=== PATIENT | male | born 1945 | race Two or more races ===

== ENCOUNTER 2016-03-15 15:45 | Outpatient (CLI) ==
[2015-08-04 15:45] VITALS: BMI 40.6
[2016-03-15 16:03] LABS: BASOPHILS # (AUTO) 0.1 K/uL (0-0.2); BASOPHILS % (AUTO) 0.8 % (0.0-3.0); EOSINOPHILS # (AUTO) 0.4 K/ul (0.0-0.7); EOSINOPHILS % (AUTO) 3.1 % (0.0-7.0); HEMATOCRIT 46.5 % (42.0-52.0); HEMOGLOBIN 15.8 g/dl (14.0-18.0); IMMATURE GRANULOCYTE % (AUTO) 0.6 % (0.0-5.0); LYMPHOCYTES # (AUTO) 2.8 K/uL (0.60-3.4); LYMPHOCYTES % (AUTO) 22.3 (10.0-50.0); MEAN CORPUSCULAR HEMOGLOBIN 30.6 pg (27.0-31.0); MEAN CORPUSCULAR VOLUME 89.9 fl (80.0-94.0); MONOCYTES # (AUTO) 1.6 K/uL (0.4-2.0); MONOCYTES % (AUTO) 12.9 (0-10); NEUTROPHILS # (AUTO) 7.7 K/ul (2.0-6.9); NEUTROPHILS % (AUTO) 60.3; PLATELET COUNT 290 10^3/uL (140-440); RED BLOOD COUNT 5.17 10^6/ul (4.70-6.10); WHITE BLOOD COUNT 12.71 K/ul (4.2-10.2)
[2016-03-15 16:19] LABS: ALBUMIN 3.8 g/dL (3.4-5.0); ALBUMIN/GLOBULIN RATIO 1.06; ANION GAP 14.4; BILIRUBIN,TOTAL 0.31 mg/dL (0.00-1.20); BUN/CREATININE RATIO 17.43; CALCIUM 9.8 mg/dL (8.2-10.2); CHOL/HDL RATIO 5.6 (4.5-6.4); CREATININE 1.09 mg/dL (0.60-1.10); POTASSIUM 4.4 mmol/L (3.5-5.1); TOTAL PROTEIN 7.4 g/dL (5.8-8.1)
== END 2016-03-15 15:46 | disposition home or self-care (01) ==
LOC: LAB 15:45
PROVIDERS: ATTEND Emergency Medicine
DX: I10 Essential (primary) hypertension (principal); E66.9 Obesity, unspecified
CPT/HCPCS: 36415; 80053; 80061; 84443; 85025

== ENCOUNTER 2016-07-20 14:31 | Outpatient (CLI) | payer OTHER ==
[2015-08-04 15:45] VITALS: BMI 40.6
[2016-07-20 14:47] LABS: BASOPHILS # (AUTO) 0.1 K/uL (0-0.2); BASOPHILS % (AUTO) 0.8 % (0.0-3.0); EOSINOPHILS # (AUTO) 0.3 K/ul (0.0-0.7); EOSINOPHILS % (AUTO) 2.7 % (0.0-7.0); HEMATOCRIT 43.1 % (42.0-52.0); IMMATURE GRANULOCYTE % (AUTO) 0.6 % (0.0-5.0); LYMPHOCYTES # (AUTO) 2.7 K/uL (0.60-3.4); LYMPHOCYTES % (AUTO) 22.7 (10.0-50.0); MEAN CORPUSCULAR HGB CONC 34.8 (31.8-35.4); MONOCYTES # (AUTO) 1.4 K/uL (0.4-2.0); MONOCYTES % (AUTO) 11.6 (0-10); NEUTROPHILS # (AUTO) 7.4 K/ul (2.0-6.9); NEUTROPHILS % (AUTO) 61.6; PLATELET COUNT 305 10^3/uL (140-440); RED BLOOD COUNT 4.84 10^6/ul (4.70-6.10); WHITE BLOOD COUNT 11.96 K/ul (4.2-10.2)
[2016-07-20 15:33] LABS: ALBUMIN 3.9 g/dL (3.4-5.0); ALBUMIN/GLOBULIN RATIO 1.11; ANION GAP 13.5; BILIRUBIN,TOTAL 0.56 mg/dL (0.00-1.20); BUN/CREATININE RATIO 15.74; CALCIUM 9.8 mg/dL (8.2-10.2); CHOL/HDL RATIO 5.4 (4.5-6.4); CREATININE 1.08 mg/dL (0.60-1.10); POTASSIUM 4.5 mmol/L (3.5-5.1); TOTAL PROTEIN 7.4 g/dL (5.8-8.1)
== END 2016-07-20 14:32 | disposition home or self-care (01) ==
LOC: LAB 14:31
PROVIDERS: ATTEND Emergency Medicine
DX: I10 Essential (primary) hypertension (principal); E66.9 Obesity, unspecified
CPT/HCPCS: 36415; 80053; 80061; 84443; 85025

== ENCOUNTER 2016-10-19 07:51 | Outpatient (CLI) ==
[2015-08-04 15:45] VITALS: BMI 40.6
[2016-10-19 08:12] LABS: BASOPHILS # (AUTO) 0.1 K/uL (0-0.2); EOSINOPHILS # (AUTO) 0.5 K/ul (0.0-0.7); EOSINOPHILS % (AUTO) 5.1 % (0.0-7.0); HEMATOCRIT 44.4 % (42.0-52.0); HEMOGLOBIN 15.3 g/dl (14.0-18.0); IMMATURE GRANULOCYTE % (AUTO) 0.9 % (0.0-5.0); LYMPHOCYTES # (AUTO) 2.5 K/uL (0.60-3.4); LYMPHOCYTES % (AUTO) 25.9 (10.0-50.0); MEAN CORPUSCULAR HEMOGLOBIN 30.7 pg (27.0-31.0); MEAN CORPUSCULAR HGB CONC 34.5 (31.8-35.4); MEAN CORPUSCULAR VOLUME 89.2 fl (80.0-94.0); MONOCYTES # (AUTO) 0.9 K/uL (0.4-2.0); MONOCYTES % (AUTO) 9.2 (0-10); NEUTROPHILS # (AUTO) 5.6 K/ul (2.0-6.9); NEUTROPHILS % (AUTO) 57.9; PLATELET COUNT 333 10^3/uL (140-440); RED BLOOD COUNT 4.98 10^6/ul (4.70-6.10); WHITE BLOOD COUNT 9.73 K/ul (4.2-10.2)
[2016-10-19 08:44] LABS: ALBUMIN 3.8 g/dL (3.4-5.0); ALBUMIN/GLOBULIN RATIO 1.06; ANION GAP 15.2; BILIRUBIN,TOTAL 0.62 mg/dL (0.00-1.20); BUN/CREATININE RATIO 18.55; CALCIUM 9.7 mg/dL (8.2-10.2); CHOL/HDL RATIO 3.9 (4.5-6.4); CREATININE 0.97 mg/dL (0.60-1.10); POTASSIUM 4.2 mmol/L (3.5-5.1); TOTAL PROTEIN 7.4 g/dL (5.8-8.1)
[2016-10-20 06:11] LABS: THYROXINE (T4) 8.5 ug/dL (4.5-12.0); TSH 2.69 uIU/mL (0.450-4.500)
== END 2016-10-19 07:52 | disposition home or self-care (01) ==
LOC: LAB 07:51
PROVIDERS: ATTEND Emergency Medicine
DX: I10 Essential (primary) hypertension (principal); E66.9 Obesity, unspecified; E78.5 Hyperlipidemia, unspecified
CPT/HCPCS: 36415; 80053; 80061; 84436; 84443; 84479; 85025

== ENCOUNTER 2024-12-03 09:39 | Inpatient (IN) ==
[2024-12-03] MEDS: ALBUTEROL 0.083% NEB NEB STA (10:04)
[2024-12-03 10:09] LABS: IMMATURE GRANULOCYTE # (AUTO) 0.1 (0.0-1.0); IMMATURE GRANULOCYTE % (AUTO) 0.5 % (0.0-5.0); RDW COEFFICIENT OF VARIATION 14.4 % (11.6-14.8)
[2024-12-03 10:23] LABS: CREATININE 1.45 mg/dL (0.60-1.10)
--- NOTE | 2024-12-03 10:27 | DI ---
EXAM: CHEST RADIOGRAPH TECHNIQUE: Single frontal chest radiograph. HISTORY: Shortness of breath. COMPARISON: 08/04/2015 FINDINGS: The patient is mildly rotated to the left. The patient's chin partially obscures the left apex. Hypoventilation. EKG leads project over the chest. No pulmonary infiltrate is identified. Equivocal trace bilateral pleural effusions. No visible pneumothorax. Stable cardiomegaly, with interval development of increased peribronchovascular markings bilaterally. No acute displaced rib fractures are identified. IMPRESSION: 1. Stable cardiomegaly with equivocal trace bilateral pleural effusions, and suggestions of either interstitial edema or bronchitis.
--- NOTE | 2024-12-03 11:21 | US ---
EXAM: BILATERAL LOWER EXTREMITY DEEP VENOUS ULTRASOUND WITH DOPPLER IMAGING HISTORY: Lower extremity edema. TECHNIQUE: Bryant-scale ultrasound with compression maneuvers and color and spectral Doppler ultrasound at rest and with augmentation of the veins was performed. Images were obtained and stored in a permanent archive. COMPARISON: Right lower extremity venous Doppler ultrasound 08/10/2015 FINDINGS: RIGHT LOWER EXTREMITY: Common Femoral Vein: Normal compression. Normal flow on color Doppler images. Normal response to augmentation. Deep Femoral Vein: Normal compression. Normal flow on color Doppler images. Normal response to augmentation. Femoral Vein: Normal compression. Normal flow on color Doppler images. Normal response to augmentation. Popliteal Vein: Normal compression. Normal flow on color Doppler images. Normal response to augmentation. Peroneal Vein: Normal compression. Normal flow on color Doppler images. Posterior Tibial Vein: Normal compression. Normal flow on color Doppler images. Anterior Tibial Vein: Normal compression. Normal flow on color Doppler images. Great Saphenous Vein (Superficial): Normal compression. Normal flow on color Doppler images. Other: No reflux. LEFT LOWER EXTREMITY: Common Femoral Vein: Normal compression. Normal flow on color Doppler images. Normal response to augmentation. Deep Femoral Vein: Normal compression. Normal flow on color Doppler images. Normal response to augmentation. Femoral Vein: Normal compression. Normal flow on color Doppler images. Normal response to augmentation. Popliteal Vein: Normal compression. Normal flow on color Doppler images. Normal response to augmentation. Peroneal Vein: Suboptimal visualization due to body habitus and subcutaneous edema. Posterior Tibial Vein: Normal compression. Normal flow on color Doppler images. Anterior Tibial Vein: Normal compression. Normal flow on color Doppler images. Great Saphenous Vein (Superficial): Normal compression. Normal flow on color Doppler images. Other: No reflux. Subcutaneous edema. IMPRESSION: 1. No deep venous thrombosis (DVT) in the visualized right or left lower extremity. Suboptimal evaluation of left peroneal vein. 2. No superficial venous thrombosis (SVT) in the right or left lower extremity. 3. Subcutaneous edema. *Note: Anticoagulation for SVT can be considered only if greater than or equal to 5 cm in length. (https://journal.chestnet.org/[email or web address]/[email or web address])
[2024-12-03] MEDS: ZOSYN 2.25 GM 2.25 GM in SODIUM CHLORIDE 100ML 100 ML IV ONE (11:27)
[2024-12-03] MEDS: LASIX IVP STA (11:27)
[2024-12-03] MEDS: VISIPAQUE 320 MG/ML 100ML IVP ONE (11:49)
[2024-12-03 11:52] LABS: MOLECULAR FLU A NEGATIVE BY NAAT (NEGATIVE); MOLECULAR FLU B NEGATIVE BY NAAT (NEGATIVE)
[2024-12-03 11:58] LABS: SARS COV-2 RNA RAPID NAAT NEGATIVE (NEGATIVE)
--- NOTE | 2024-12-03 12:00 | ED.PDOC ---
General HPI ED Provider: Dr. TITI ALONSO MD Chief Complaint: Shortness of Air Stated Complaint: 79 years old male comes emergency room for shortness of breath. Patient has not seen a doctor since 2016. He is complaining of shortness of breath that have gotten progressively worse along with edema of the lower extremities patient also reports that he is feeling overall weak. He denies any chest pain, nausea, vomiting, changes in bowel or urine. Time Seen by Provider: 12/03/24 09:52 Information Source: Patient Nursing and Triage Documentation Reviewed and Agree: Yes Opioid Naive vs. Tolerant What is Opioid Naive?: *Opioid Naive implies the patient is not already taking opioids or not chronically receiving opioids on a daily basis. *PRN dosing is not "usually" associated with tolerance. *Patients are at higher risk of over-sedation and aspiration. What is Opioid Tolerant?: *Opioid Tolerance implies less than the expected response to an opioid. *Acquired tolerance is defined by the patient taking 60mg of oral morphine daily (or equianalgesic dose of another opioid) for 1 week or more. *Often associated with chronic pain. *May take more than usual dose to achieve desired pain control. Review of Systems Review Of Systems Constitutional: Reports No symptoms All Other Systems: Reviewed and Negative [facility] Medical History (Updated 12/03/24 @ 12:36 by TITI ALONSO MD) Hypertension I10 - Essential (primary) hypertension (ICD-10) History of blood clot in brain (~1992) Z86.718 - Personal history of other venous thrombosis and embolism (ICD-10) Social History History of recent travel: No Surgical History (Updated 09/29/19 @ 08:51 by [employer]) Status post tonsillectomy Z90.89 - Acquired absence of other organs (ICD-10) Physical Exam Physical Exam Appearance: Reports Obese Neck: Supple Respiratory: Reports Breath sounds diminished and Crackles (Mild bibasilar) Cardiovascular: Reports RRR and Pulses normal GI/: Reports Soft, Nontender and No masses Musculoskeletal: Reports Edema ( plus bilateral lower extremities with skin erythema) Skin: Reports Warm and Other (Erythema of the bilateral lower extremities more on the right side) Neurological: Reports Sensation intact and Motor intact Psychiatric: Reports Affect appropriate Interpretation EKG Interpretation EKG Interpretation By: ED Physician Time of EKG #1: 09:52 Rate: Normal Rhythm: Sinus Ectopy: None [place]: NL Interpretation: no sings of acute ischemia Course Course 12/03/24 09:57 12/03/24 09:57 Orders, Labs, Meds: Lab Review 12/03/24 12/03/24 12/03/24 09:56 09:57 11:40 WBC 20.09 H RBC 5.44 Hgb 16.7 Hct 52.0 MCV 95.6 H MCH 30.7 MCHC 32.1 RDW Coeff of Brigid 14.4 Plt Count 283 Immature Gran % (Auto) 0.5 Neut % (Auto) 90.3 H Lymph % (Auto) 3.9 L Wheeler % (Auto) 5.0 Eos % (Auto) 0.0 Baso % (Auto) 0.3 Neut # (Auto) 18.1 H Lymph # (Auto) 0.8 Wheeler # (Auto) 1.0 Eos # (Auto) 0.0 Baso # (Auto) 0.1 Immature Gran # (Auto) 0.1 Sodium 138.7 Potassium 4.65 Chloride 105.6 Carbon Dioxide 24.7 Anion Gap 13.05 BUN 24.7 H Creatinine 1.45 H Estimated GFR (MDRD) 47.00 BUN/Creatinine Ratio 17.03 Glucose 109.0 H Lactic Acid 5.39 H Calcium 9.56 Total Bilirubin 1.97 H AST 39.0 ALT 30.8 Alkaline Phosphatase 296.8 H Troponin I 0.060 NT-Pro-B Natriuret Pep 34387 H Total Protein 7.50 Albumin 3.77 Globulin 3.73 Albumin/Globulin Ratio 1.01 D-Dimer 1451.98 H Influ A Molecular Assay Negative by naat Influ B Molecular Assay Negative by naat SARS CoV-2 RNA Rapid MARGUERITE Negative Orders Category Date Time Status ADMIT PATIENT INPATIENT .TO [facility] (MONITORED BED) ADMISSION 12/03/24 12:32 Completed ECHO COLOR FLOW W/WO CONTRAST Routine CARDIO 12/03/24 12:35 Ordered NEBULIZER TREATMENT Stat CARDIO 12/03/24 09:59 Completed NPO REMINDER: IMAGING ONCE CARE 12/03/24 11:35 Active TELEMETRY MONITORING TELE CARE 12/03/24 12:32 Active IV [ED IV/MEDIPORT/POWERPORT] .ONCE EMERGENCY 12/03/24 10:00 Active Monitor [ED PIPE BLANKS CUT OFF SAW OPERATOR APPLIED] .ONCE EMERGENCY 12/03/24 10:00 Active BLOOD CULTURE (ED ONLY) Stat LAB 12/03/24 10:34 Received CBC W/ AUTO DIFF Stat LAB 12/03/24 09:57 Completed CMP [COMPREHENSIVE METABOLIC PANEL] Stat LAB 12/03/24 09:57 Completed COVID [SARS COV-2 RNA RAPID MARGUERITE] Stat LAB 12/03/24 11:40 Completed D-DIMER Stat LAB 12/03/24 09:57 Completed FLU A & B MOLECULAR [FLU A/B MOLECULAR] Stat LAB 12/03/24 11:40 Completed LACTIC ACID Stat LAB 12/03/24 09:56 Completed NT-PROBNP(ED) Stat LAB 12/03/24 09:57 Completed TROPONIN I Stat LAB 12/03/24 09:57 Completed 0.9 % Sodium Chloride [Saline Flush] Meds 12/03/24 10:00 Active 1 syr IVF PRN PRN Albuterol Sulfate 0.083% Neb [Albuterol 0.083% Neb] Meds 12/03/24 09:57 Discontinued 2.5 mg NEB ONCE STA Furosemide [Lasix] Meds 12/03/24 10:35 Discontinued 20 mg IVP ONCE STA Iodixanol [Visipaque 320 mg/ml 100Ml] Meds 12/03/24 11:37 Discontinued 100 ml IVP ONCE ONE Piperacillin Sodium/Tazobactam [Zosyn 2.25 gm] 2.25 gm Meds 12/03/24 10:34 Discontinued 0.9 % Sodium Chloride [Sodium Chloride 100Ml] 100 ml IV ONCE CTA CHEST PE PROTOCOL Stat RADS 12/03/24 11:35 Completed CXR [CHEST, 1V AP ONLY] Stat RADS 12/03/24 09:57 Completed ULTRASOUND VENOUS SCAN KORTNEY LEGS [U/S VENOUS SCAN KORTNEY RADS 12/03/24 09:57 Completed LEGS] Stat Medications Generic Name Dose Route Start Last Admin Trade Name Freq PRN Reason Stop Dose Admin Acetaminophen 650 mg 12/03/24 13:36 Acetaminophen 325 Mg Tablet PO Q4H PRN Mild Pain Furosemide 40 mg 12/03/24 21:00 Furosemide Inj 40 Mg/4 Ml Vial IVP Q8HR WARREN Cefazolin Sodium/Dextrose 2 gm in 50 mls @ 75 mls/hr 12/03/24 14:30 Ancef 2 Gm/50 Ml Premix IV 12/06/24 14:29 Q8HR WARREN Ondansetron HCl 4 mg 12/03/24 13:36 Ondansetron Hcl/Pf 4 Mg/2 Ml Sdv IVP Q6H PRN Nausea / Vomiting Sodium Chloride 1 syr 12/03/24 10:00 0.9% Sodium Chloride 10 Ml Disp.Syrin IVF PRN PRN To flush IV Discontinued Medications Generic Name Dose Route Start Last Admin Trade Name Freq PRN Reason Stop Dose Admin Albuterol Sulfate 2.5 mg 12/03/24 09:57 12/03/24 10:04 Albuterol Sulfate 0.083% Vial.Neb NEB 12/03/24 09:58 2.5 mg ONCE STA Administration Furosemide 20 mg 12/03/24 10:35 12/03/24 11:27 Furosemide Inj 20 Mg/2 Ml Vial IVP 12/03/24 10:36 20 mg ONCE STA Administration Piperacillin Sod/Tazobactam 100 mls @ 200 mls/hr 12/03/24 10:34 12/03/24 11:27 Sod 2.25 gm/ Sodium Chloride IV 12/03/24 11:03 200 mls/hr ONCE ONE Administration Iodixanol 100 ml 12/03/24 11:37 12/03/24 11:49 Iodixanol 320 Mg/Ml 100ml IVP 12/03/24 11:38 100 ml ONCE ONE Administration Vital Signs: Temp Pulse Resp BP Pulse Ox 12/03/24 09:43 97.7 F 102 H 22 H 118/77 96 Patient with cellulitis bilateral lower extremities CBC showing leukocytosis with left shift lactic acid is 5 patient also have CHF exacerbation proBNP is 36,000 blood cultures were drawn will avoid hydration due to CHF exacerbation patient received 20 mg of Lasix IV along with nebulizer treatment which helped with his saturations prior cellulitis he received a dose of Zosyn. proBNP mildly elevated ultrasound lower extremities negative for DVT as per radiology interpretation chest x-ray showing pulmonary vascular congestion with trace of pleural effusion as per radiology interpretation CTA PE protocol negative for PE as per radiology interpretation as well. Patient will be admitted for further diuresis and will be antibiotics and echo. Case discussed with hospitalist Carol and she accepted the patient to be admitted for further management. Plan of admission discussed with the patient and he agrees with plan of care. Discharge Plan Discharge Patient Disposition: ADMITTED INPATIENT Discharge Problem: Cellulitis of right lower extremity, Acute exacerbation of congestive heart failure Did you review [place] [employer] for ALL controlled substances?: Not Applicable ED Provider: TITI ALONSO Condition: Stable
--- NOTE | 2024-12-03 12:24 | CT ---
EXAM: CHEST CTA WITH CONTRAST (PULMONARY ARTERY) HISTORY: Chest pain and shortness of breath. TECHNIQUE: CTA acquisition of the chest from the thoracic inlet to the upper abdomen following IV contrast administration timed to filling of the pulmonary artery. 3D/MIP/VR images were utilized. CT Dose Reduction Techniques Employed: Yes. COMPARISON: None. FINDINGS: Pulmonary Embolism: - Diagnostic quality: Adequate. - Central (Main/Lobar/Interlobar): No embolus. - Peripheral (Segmental/Subsegmental): No embolus. Lung Parenchyma and Airways: There are moderate bilateral pleural effusions. There is pulmonary vascular congestion. No suspicious pulmonary nodule. No pleural effusion or thickening. No pneumothorax. Thoracic Inlet, Mediastinum, and [place]: No mass. There are calcified mediastinal lymph nodes. Heart, Vessels, and Pericardium: No aortic anuerysm. The heart chambers are enlarged. There is no pericardial effusion or thickening. There are multi vessel coronary vascular calcifications. Bones and Soft Tissues: There is no fracture or lytic lesion. Chest wall soft tissues are unremarkable. Upper Abdomen: There are calcified granulomas in the liver and spleen. IMPRESSION: 1. No evidence of pulmonary artery embolism. 2. Vascular congestion with moderate bilateral pleural effusions. All CT scans are performed using dose optimization techniques as appropriate to the performed exam and include at least one of the following: Automated exposure control, adjustment of the mA and/or kV according to size, and the use of iterative reconstruction technique.
[2024-12-03] MEDS ORDERED: ZOFRAN SDV IVP PRN (13:36)
[2024-12-03] MEDS ORDERED: TYLENOL PO PRN (13:36)
[2024-12-03 13:50] LABS: CHOL/HDL RATIO 3.3 (4.5-6.4); VLDL CHOLESTEROL 24.0 mg/dL (2-30)
--- NOTE | 2024-12-03 14:00 | PCM ---
Date of Service Date Seen by Provider: 12/03/24 Time Seen by Provider: 13:00 Admit Day/Time Admission Date: 12/03/24 Admission Time: 12:35 Reason for Admission Chief Complaint: CELLULITIS, BLE, CHF EXACERBATION Hospital Provider Hospital Provider: NINOSKA DAMON PA-C, [facility] History of Present Illness History of Present Illness: Patient is a 79 year old male with no known PMH due to lack of health care utilization. Patient arrived to the ED today due to shortness of breath and weakness. He has been experiencing this for 4 months but today he walked 100 feet to his garage, and was so short of breath and weak that he sat down and could not get up. He called his friend to come help him and brought him to the ER. Chest xray and CTA was obtained in the ER, which showed bilateral pleural [place]. [place] [address]. D-dimer elevated at 1451.98, Bilat LE dop pler US showed no DVT. Patient has bilateral 2-3+ lower extremity edema with erythema of the right lower extremity extending from the anterior and lateral portion of the lower leg up to the thigh, suspicious for cellulitis. WBC count and lactic acid is elevated. He states he has had a dry cough for the past few months. He denies any chest pain, nausea, headache, dizziness, or complaints. Has hx of cellulitis many years ago. Admitted to med surg. Case Discussed With Case Discussed With: Patient's case was discussed with the ER Physicians, Dr. Lilly. [facility] Medical History Hypertension I10 - Essential (primary) hypertension (ICD-10) History of blood clot in brain (~1992) Z86.718 - Personal history of other venous thrombosis and embolism (ICD-10) Surgical History Status post tonsillectomy Z90.89 - Acquired absence of other organs (ICD-10) Family History FATHER Enlarged heart Social History History of recent travel: No Allergies Allergies Allergy/AdvReac Type Severity Reaction Status Date / Time No Known Allergies Allergy Unverified 12/03/24 09:43 Current Medications Home Medications Acetaminophen (Acetaminophen 325 Mg Tablet) 650 mg PO Q4H PRN PRN Reason: Mild Pain Furosemide (Furosemide Inj 40 Mg/4 Ml Vial) 40 mg IVP Q8HR [facility] Cefazolin Sodium/Dextrose (Ancef 2 Gm/50 Ml Premix) 2 gm in 50 mls @ 75 mls/hr IV Q8HR [facility] Stop: 12/06/24 14:29 Metoprolol Tartrate (Metoprolol Tartrate 25 Mg Tablet) 12.5 mg PO BID [facility] Last Admin: 12/03/24 14:46 Dose: 12.5 mg Non-Formulary Medication (Aspirin) 325 mg PO DAILY [facility] Non-Formulary Medication (Folic Acid) 400 mcg PO DAILY [facility] Non-Formulary Medication (Multivitamin [Daily Multi-Vitamin]) 1 tab PO DAILY [facility] Ondansetron HCl (Ondansetron Hcl/Pf 4 Mg/2 Ml Sdv) 4 mg IVP Q6H PRN PRN Reason: Nausea / Vomiting Sodium Chloride (0.9% Sodium Chloride 10 Ml Disp.Syrin) 1 syr IVF PRN PRN PRN Reason: To flush IV Neuro Tonix 12/03/24 [History] aspirin 325 mg tablet 325 mg PO DAILY 12/03/24 [History Confirmed 12/03/24] folic acid 400 mcg tablet 400 mcg PO DAILY 12/03/24 [History Confirmed 12/03/24] multivitamin (Daily Multi-Vitamin tablet) 1 tab PO DAILY 12/03/24 [History Confirmed 12/03/24] Opioid Naive vs. Tolerant Does Patient Take Opioids?: No Is Patient Opioid Naive?: Yes What is Opioid Naive?: *Opioid Naive implies the patient is not already taking opioids or not chronically receiving opioids on a daily basis. *PRN dosing is not "usually" associated with tolerance. *Patients are at higher risk of over-sedation and aspiration. Is Patient Opioid Tolerant?: No What is Opioid Tolerant?: *Opioid Tolerance implies less than the expected response to an opioid. *Acquired tolerance is defined by the patient taking 60mg of oral morphine daily (or equianalgesic dose of another opioid) for 1 week or more. *Often associated with chronic pain. *May take more than usual dose to achieve desired pain control. Review of Systems Constitutional: Reports Fatigue and Weakness; Denies Fever or Chills Head: Reports Normocephalic and Atraumatic Eyes: Denies Blurred vision Cardiovascular: Denies Chest pain Respiratory: Reports Cough and Shortness of air Gastrointestinal: Denies Nausea, Vomiting, Diarrhea or Abdominal pain Genitourinary: Reports Testicular Swelling; Denies Dysuria or Frequency Neurological: Denies Headache or Dizziness Physical examination Most Recent Vital Signs: Most Recent Vital Signs Temperature 97.7 F 12/03/24 09:43 Temperature Source Infrared 12/03/24 09:43 Pulse Rate 102 H 12/03/24 09:43 Respiratory Rate 22 H 12/03/24 09:43 Blood Pressure 118/77 12/03/24 09:43 O2 Sat by Pulse Oximetry 96 12/03/24 09:43 Height 5 ft 10.5 in 12/03/24 09:43 Weight 133.8 kg 12/03/24 09:43 Telemetry Heart Rate 100 08/10/15 13:00 Appearance: Positive Well-appearing, No Apparent Distress, Alert and Oriented x3 and Obese Skin: Positive [place], Warm and Erythema (right lower extremity anterior and laterally extending up to his thigh. Weeping noted.) HEENT: Positive Normocephalic and Atraumatic Neck: Positive Supple Chest/Lungs: Positive Symmetrical With Equal Breath Sounds and Clear to Auscultation Bilaterally; Negative Rales, Rhonci or Wheezes Heart: Positive RRR and Tachycardia GI/: Positive Soft and Nontender Extremities: Positive Edema (2-3+ bilat LE ) Neurological: Positive Sensation Intact, Motor intact, Cranial Nerves Intact, Alert and Oriented Psychiatric: Positive Oriented x4 Labs This Visit Labs This Visit: Labs This Visit 12/03/24 12/03/24 12/03/24 09:56 09:57 11:40 WBC 20.09 H RBC 5.44 Hgb 16.7 Hct 52.0 MCV 95.6 H MCH 30.7 MCHC 32.1 RDW Coeff of Brigid 14.4 Plt Count 283 Immature Gran % (Auto) 0.5 Neut % (Auto) 90.3 H Lymph % (Auto) 3.9 L [place] % (Auto) 5.0 Eos % (Auto) 0.0 Baso % (Auto) 0.3 Neut # (Auto) 18.1 H Lymph # (Auto) 0.8 [place] # (Auto) 1.0 Eos # (Auto) 0.0 Baso # (Auto) 0.1 Immature Gran # (Auto) 0.1 Sodium 138.7 Potassium 4.65 Chloride 105.6 Carbon Dioxide 24.7 Anion Gap 13.05 BUN 24.7 H Creatinine 1.45 H Estimated GFR (MDRD) 47.00 BUN/Creatinine Ratio 17.03 Glucose 109.0 H Hemoglobin A1c Lactic Acid 5.39 H Calcium 9.56 Total Bilirubin 1.97 H AST 39.0 ALT 30.8 Alkaline Phosphatase 296.8 H Troponin I 0.060 NT-Pro-B Natriuret Pep 47917 H Total Protein 7.50 Albumin 3.77 Globulin 3.73 Albumin/Globulin Ratio 1.01 Triglycerides Cholesterol LDL Cholesterol, Calc VLDL Cholesterol HDL Cholesterol Cholesterol/HDL Ratio D-Dimer 1451.98 H Influ A Molecular Assay Negative by naat Influ B Molecular Assay Negative by naat SARS CoV-2 RNA Rapid MARGUERITE Negative 12/03/24 13:36 WBC RBC Hgb Hct MCV MCH MCHC RDW Coeff of Brigid Plt Count Immature Gran % (Auto) Neut % (Auto) Lymph % (Auto) [place] % (Auto) Eos % (Auto) Baso % (Auto) Neut # (Auto) Lymph # (Auto) [place] # (Auto) Eos # (Auto) Baso # (Auto) Immature Gran # (Auto) Sodium Potassium Chloride Carbon Dioxide Anion Gap BUN Creatinine Estimated GFR (MDRD) BUN/Creatinine Ratio Glucose Hemoglobin A1c 5.62 Lactic Acid Calcium Total Bilirubin AST ALT Alkaline Phosphatase Troponin I NT-Pro-B Natriuret Pep Total Protein Albumin Globulin Albumin/Globulin Ratio Triglycerides 118.8 Cholesterol 149.0 LDL Cholesterol, Calc 80 VLDL Cholesterol 24 HDL Cholesterol 44.9 Cholesterol/HDL Ratio 3.3 L D-Dimer Influ A Molecular Assay Influ B Molecular Assay SARS CoV-2 RNA Rapid MARGUERITE Imaging Imaging: EXAM: CHEST RADIOGRAPH TECHNIQUE: Single frontal chest radiograph. HISTORY: Shortness of breath. COMPARISON: 08/04/2015 FINDINGS: The patient is mildly rotated to the left. The patient's chin partially obscures the left apex. Hypoventilation. EKG leads project over the chest. No pulmonary infiltrate is identified. Equivocal trace bilateral pleural effusions. No visible pneumothorax. Stable cardiomegaly, with interval development of increased peribronchovascular markings bilaterally. No acute displaced rib fractures are identified. IMPRESSION: 1. Stable cardiomegaly with equivocal trace bilateral pleural effusions, and suggestions of either interstitial edema or bronchitis. EXAM: CHEST CTA WITH CONTRAST (PULMONARY ARTERY) HISTORY: Chest pain and shortness of breath. TECHNIQUE: CTA acquisition of the chest from the thoracic inlet to the upper abdomen following IV contrast administration timed to filling of the pulmonary artery. 3D/MIP/VR images were utilized. CT Dose Reduction Techniques Employed: Yes. COMPARISON: None. FINDINGS: Pulmonary Embolism: - Diagnostic quality: Adequate. - Central (Main/Lobar/Interlobar): No embolus. - Peripheral (Segmental/Subsegmental): No embolus. Lung Parenchyma and Airways: There are moderate bilateral pleural effusions. There is pulmonary vascular congestion. No suspicious pulmonary nodule. No pleural effusion or thickening. No pneumothorax. Thoracic Inlet, Mediastinum, and [place]: No mass. There are calcified mediastinal lymph nodes. Heart, Vessels, and Pericardium: No aortic anuerysm. The heart chambers are enlarged. There is no pericardial effusion or thickening. There are multi vessel coronary vascular calcifications. Bones and Soft Tissues: There is no fracture or lytic lesion. Chest wall soft tissues are unremarkable. Upper Abdomen: There are calcified granulomas in the liver and spleen. IMPRESSION: 1. No evidence of pulmonary artery embolism. 2. Vascular congestion with moderate bilateral pleural effusions. All CT scans are performed using dose optimization techniques as appropriate to the performed exam and include at least one of the following: Automated exposure control, adjustment of the mA and/or kV according to size, and the use of iterative reconstruction technique. EXAM: BILATERAL LOWER EXTREMITY DEEP VENOUS ULTRASOUND WITH DOPPLER IMAGING HISTORY: Lower extremity edema. TECHNIQUE: Bryant-scale ultrasound with compression maneuvers and color and spectral Doppler ultrasound at rest and with augmentation of the veins was performed. Images were obtained and stored in a permanent archive. COMPARISON: Right lower extremity venous Doppler ultrasound 08/10/2015 FINDINGS: RIGHT LOWER EXTREMITY: Common Femoral Vein: Normal compression. Normal flow on color Doppler images. Normal response to augmentation. Deep Femoral Vein: Normal compression. Normal flow on color Doppler images. Normal response to augmentation. Femoral Vein: Normal compression. Normal flow on color Doppler images. Normal response to augmentation. Popliteal Vein: Normal compression. Normal flow on color Doppler images. Normal response to augmentation. Peroneal Vein: Normal compression. Normal flow on color Doppler images. Posterior Tibial Vein: Normal compression. Normal flow on color Doppler images. Anterior Tibial Vein: Normal compression. Normal flow on color Doppler images. Great Saphenous Vein (Superficial): Normal compression. Normal flow on color Doppler images Other: No reflux. LEFT LOWER EXTREMITY: Common Femoral Vein: Normal compression. Normal flow on color Doppler images. Normal response to augmentation. Deep Femoral Vein: Normal compression. Normal flow on color Doppler images. Normal response to augmentation. Femoral Vein: Normal compression. Normal flow on color Doppler images. Normal response to augmentation. Popliteal Vein: Normal compression. Normal flow on color Doppler images. Normal response to augmentation. Peroneal Vein: Suboptimal visualization due to body habitus and subcutaneous edema. Posterior Tibial Vein: Normal compression. Normal flow on color Doppler images. Anterior Tibial Vein: Normal compression. Normal flow on color Doppler images. Great Saphenous Vein (Superficial): Normal compression. Normal flow on color Doppler images. Other: No reflux. Subcutaneous edema. IMPRESSION: 1. No deep venous thrombosis (DVT) in the visualized right or left lower extremity. Suboptimal evaluation of left peroneal vein. 2. No superficial venous thrombosis (SVT) in the right or left lower extremity. 3. Subcutaneous edema. Review Statement Review Statement: I have independently reviewed and interpreted the labs/EKGs/imaging that were ordered by the ER provider. I have reviewed all outside records that are available currently in our EMR including imaging/notes/labs from previous visits. Plan Plan: 1. Acute heart failure exacerbation, unknown type - Lasix, I&Os, daily weights, low sodium diet, 1800 mL fluid restriction. Check ECHO 2. Cellulitis of right lower extremity - Cefazolin 3. Obesity - BMI of 41 4. Sepsis due to cellulitis - did not give fluid resuscitation due to heart failure. Continue antibiotics. Blood cultures pending 5. DEWAYNE stage 1 - compared to previous labs, do not know recent baseline. Will monitor closely with diuresis. 6. Tachycardia - Pt had a run of tachycardia on telemetry, was not caught by EKG. Cont tele. Will start metoprolol. DVT Prophylaxis: Ambulation Time Spent: Greater than 80 minutes spent with patient, 50% of the time spent with this patient was devoted to counseling and coordination of care. [facility] minutes spent discussing advance care planning. Admit to: Inpatient Discussed Plan of Care with Dr. Chasity Hawthorne. Medications Medication Orders: Medications Ordered Category Date Time Status 0.9 % Sodium Chloride [Saline Flush] Meds 12/03/24 10:00 Active 1 syr IVF PRN PRN Acetaminophen [Tylenol] Meds 12/03/24 13:36 Ordered 650 mg PO Q4H PRN Cefazolin Sodium/Dextrose,Iso [Ancef 2 gm/50 ml Premix] Meds 12/03/24 21:00 Ordered 2 gm in 50 ml IV Q8HR Furosemide [Lasix] Meds 12/03/24 21:00 Ordered 40 mg IVP Q8HR Ondansetron HCl/Pf [Zofran Sdv] Meds 12/03/24 13:36 Ordered 4 mg IVP Q6H PRN
[2024-12-03 14:06] VITALS: BMI 41.3
[2024-12-03] MEDS: LOPRESSOR PO SCH (14:46)
[2024-12-03] MEDS: DEFINITY IVP PRN (15:43)
[2024-12-03] MEDS: ANCEF 2 GM/50 ML PREMIX 2 GM/50 ML BAG IV SCH (15:50)
[2024-12-03] MEDS: MAGNESIUM SULF 2 G/50 ML BAG 2 GM/50 ML PIGGYBACK IV ONE (17:30)
[2024-12-03] MEDS: LASIX IVP SCH (20:40)
[2024-12-03] MEDS: NYSTOP POWDER TP SCH (21:22)
[2024-12-04 05:22] LABS: IMMATURE GRANULOCYTE # (AUTO) 0.1 (0.0-1.0); IMMATURE GRANULOCYTE % (AUTO) 0.5 % (0.0-5.0); RDW COEFFICIENT OF VARIATION 14.5 % (11.6-14.8)
[2024-12-04] MEDS ORDERED: LOPRESSOR IVP ONE (05:27)
[2024-12-04 05:35] LABS: CREATININE 1.39 mg/dL (0.60-1.10)
[2024-12-04] MEDS: ASPIRIN EC PO SCH (07:59)
[2024-12-04] MEDS: MULTIVITAMIN TABLET PO SCH (08:01)
[2024-12-04] MEDS: FOLIC ACID PO SCH (08:03)
[2024-12-04] MEDS: LOVENOX SUBCUT SCH (10:03)
[2024-12-04] MEDS: LOPRESSOR PO ONE (12:03)
--- NOTE | 2024-12-04 12:25 | PCM.PROG ---
Date/Time Seen Date Seen by Provider: 12/04/24 Time Seen by Provider: 08:30 Provider Provider: NINOSKA DAMON PA-C, [facility] Chief Complaint Chief Complaint: CELLULITIS, BLE, CHF EXACERBATION Subjective Subjective: Patient is doing about the same today as he was yesterday. He states that he feels like he is slightly less short of breath, but still has labored breathing at rest. A catheter has been inserted and he has had a urine output of 2 L. An Echo was done yesterday and report shows an EF of 20-25%, grade II diastolic dysfunction, and cannot rule out LV apical thrombus. He has been having runs of tachycardia and abnormal conduction that lasts for about a minute then subsides. Cellulitis looks about the same today as it did yesterday. Plan is to transfer to [facility] where he can get a cardiac workup, and patient agrees to this. Objective Appearance: Positive No Apparent Distress, Alert and Oriented x3 and Obese Chest/Lungs: Positive Symmetrical With Equal Breath Sounds and Clear to Auscultation Bilaterally; Negative Rales, Rhonci or Wheezes Heart: Positive Tachycardia GI/: Positive Soft and Nontender Neurological: Positive Sensation Intact, Cranial Nerves Intact, Alert and Oriented; Negative Muscle Strength 5/5 in Upper and Lower Extremities Bilaterally (+generalized weakness ) Additional Findings: 2-3+ pitting edema marco lower ext, erythema and warmth extending up right lateral leg. Vital Signs Vital Signs: Vital Signs: Last 24 Hours 12/03/24 13:19 12/03/24 13:30 12/03/24 13:38 Temperature 96.8 F L Temperature Source Temporal Artery Scan Pulse Rate 102 H Respiratory Rate 26 H 26 H Blood Pressure Blood Pressure Mean Blood Pressure Left Arm 158/96 Blood Pressure Location Blood Pressure Position Sitting O2 Sat by Pulse Oximetry 96 Oxygen Delivery Method Room Air Room Air Oxygen Flow Rate Height 5 ft 10.5 in Weight 132.7 kg Telemetry Type Remote Telemetry Telemetry Monitoring Started Telemetry Heart Rate 96 Telemetry SPO2 EKG MA Interval 0.15 EKG QRS Interval 0.12 H Telemetry Strip Reading SR with BBB 12/03/24 14:00 12/03/24 14:06 12/03/24 18:00 Temperature 96.8 F L 97.8 F Temperature Source Temporal Artery Scan Temporal Artery Scan Pulse Rate 102 H 78 Respiratory Rate 26 H 24 H Blood Pressure 158/96 H 121/84 Blood Pressure Mean 116 96 Blood Pressure Left Arm Blood Pressure Location Left Radial Artery Right Radial Artery Blood Pressure Position O2 Sat by Pulse Oximetry 96 96 Oxygen Delivery Method Room Air Room Air Oxygen Flow Rate Height Weight 132.7 kg Telemetry Type Telemetry Monitoring Telemetry Heart Rate Telemetry SPO2 EKG MA Interval EKG QRS Interval Telemetry Strip [place] 12/03/24 19:00 12/03/24 20:00 12/03/24 21:52 Temperature 97.4 F L Temperature Source Temporal Artery Scan Pulse Rate 92 Respiratory Rate 22 H 23 H Blood Pressure 128/83 Blood Pressure Mean 98 Blood Pressure Left Arm Blood Pressure Location Left Arm Blood Pressure Position Supine O2 Sat by Pulse Oximetry 96 Oxygen Delivery Method Nasal Cannula Nasal Cannula Oxygen Flow Rate 2 Height Weight Telemetry Type Remote Telemetry Telemetry Monitoring Continues Telemetry Heart Rate 89 Telemetry SPO2 EKG MA Interval 0.16 EKG QRS Interval 0.12 H Telemetry Strip Reading SR W/ BBB 12/04/24 01:00 12/04/24 02:00 12/04/24 05:42 Temperature Temperature Source Pulse Rate 74 Respiratory Rate 16 Blood Pressure 108/78 Blood Pressure Mean 88 Blood Pressure Left Arm Blood Pressure Location Left Arm Blood Pressure Position Supine O2 Sat by Pulse Oximetry 96 Oxygen Delivery Method Nasal Cannula Nasal Cannula Oxygen Flow Rate 2 2 Height Weight Telemetry Type Remote Telemetry Telemetry Monitoring Continues Telemetry Heart Rate 77 Telemetry SPO2 100 EKG MA Interval 0.18 EKG QRS Interval 0.11 H Telemetry Strip [place] sr with bbb 12/04/24 05:46 12/04/24 05:55 12/04/24 07:00 Temperature 98.2 F Temperature Source Temporal Artery Scan Pulse Rate 83 Respiratory Rate 18 Blood Pressure 120/83 Blood Pressure Mean 95 Blood Pressure Left Arm Blood Pressure Location Left Arm Blood Pressure Position Supine O2 Sat by Pulse Oximetry 98 Oxygen Delivery Method Nasal Cannula Oxygen Flow Rate 2 Height Weight 132.7 kg Telemetry Type Remote Telemetry Telemetry Monitoring Continues Telemetry Heart Rate 81 Telemetry SPO2 88 L EKG MA Interval 0.2 EKG QRS Interval 0.12 H Telemetry Strip [place] Sr with BBB and PVCs 12/04/24 07:44 12/04/24 08:00 12/04/24 09:00 Temperature Temperature Source Pulse Rate Respiratory Rate 18 Blood Pressure Blood Pressure Mean Blood Pressure Left Arm Blood Pressure Location Blood Pressure Position O2 Sat by Pulse Oximetry Oxygen Delivery Method Nasal Cannula Oxygen Flow Rate 2 Height Weight Telemetry Type Remote Telemetry Remote Telemetry Telemetry Monitoring Continues Continues Telemetry Heart Rate Telemetry SPO2 EKG MA Interval EKG QRS Interval Telemetry Strip Reading Burst of A-fib with RVR? Short run of A- fib with RVR 12/04/24 10:00 12/04/24 10:00 Temperature 96.9 F L Temperature Source Temporal Artery Scan Pulse Rate 73 Respiratory Rate 22 H Blood Pressure 116/78 Blood Pressure Mean 90 Blood Pressure Left Arm Blood Pressure Location Left Arm Blood Pressure Position Supine O2 Sat by Pulse Oximetry 94 L 94 L Oxygen Delivery Method Nasal Cannula Nasal Cannula Oxygen Flow Rate 2 2 Height Weight Telemetry Type Telemetry Monitoring Telemetry Heart Rate Telemetry SPO2 EKG MA Interval EKG QRS Interval Telemetry Strip Reading Lab Results Lab Results: Lab Results: Last 24 Hours 12/04/24 12/03/24 12/03/24 05:13 13:36 09:52 WBC 14.96 H D RBC 5.05 Hgb 15.5 Hct 48.9 MCV 96.8 H MCH 30.7 MCHC 31.7 L RDW Coeff of Brigid 14.5 Plt Count 232 Immature Gran % (Auto) 0.5 Neut % (Auto) 83.3 H Lymph % (Auto) 7.4 L [place] % (Auto) 8.3 Eos % (Auto) 0.2 Baso % (Auto) 0.3 Neut # (Auto) 12.5 H Lymph # (Auto) 1.1 [place] # (Auto) 1.2 Eos # (Auto) 0.0 Baso # (Auto) 0.1 Immature Gran # (Auto) 0.1 Sodium 136.4 Potassium 4.36 Chloride 104.2 Carbon Dioxide 28.7 Anion Gap 7.86 BUN 29.0 H Creatinine 1.39 H Estimated GFR (MDRD) 49.00 BUN/Creatinine Ratio 20.86 Glucose 110.5 H Hemoglobin A1c 5.62 Calcium 8.88 Magnesium 2.03 1.63 Total Bilirubin 1.02 AST 34.9 ALT 20.9 Alkaline Phosphatase 234.4 H D Total Protein 6.58 Albumin 3.29 L Globulin 3.29 Albumin/Globulin Ratio 1.00 Triglycerides 118.8 Cholesterol 149.0 LDL Cholesterol, Calc 80 VLDL Cholesterol 24 HDL Cholesterol 44.9 Cholesterol/HDL Ratio 3.3 L Additional Comments Additional Comments: I have independently reviewed and interpreted the labs/EKGs/imaging ordered during this hospital stay. I have reviewed outside records that are available in our EMR that pertain to medical stay including imaging/notes/labs from previous visits. Active Medications Active Medications: Medications Generic Name Dose Route Start Last Admin Trade Name Freq PRN Reason Stop Dose Admin Acetaminophen 650 mg 12/03/24 13:36 Acetaminophen 325 Mg Tablet PO Q4H PRN Mild Pain Aspirin 325 mg 12/04/24 07:30 12/04/24 07:59 Aspirin 325 Mg Tablet. PO 325 mg DAILYWM2 WARREN Administration Enoxaparin Sodium 130 mg 12/04/24 09:00 12/04/24 10:03 Enoxaparin Sodium 150 Mg/Ml Syr SUBCUT 130 mg Q12HR WARREN Administration Folic Acid 0.5 mg 12/04/24 09:00 12/04/24 08:03 Folic Acid 1 Mg Tablet PO 0.5 mg DAILY WARREN Administration Furosemide 40 mg 12/03/24 21:00 12/04/24 04:17 Furosemide Inj 40 Mg/4 Ml Vial IVP 40 mg Q8HR WARREN Administration Cefazolin Sodium/Dextrose 2 gm in 50 mls @ 75 mls/hr 12/03/24 14:30 12/04/24 04:16 Ancef 2 Gm/50 Ml Premix IV 12/06/24 14:29 75 mls/hr Q8HR WARREN Administration Metoprolol Tartrate 5 mg 12/04/24 05:59 Metoprolol Tartrate 5 Mg/5 Ml Vial IVP ONCE PRN Ventricular Arrhythmia Metoprolol Tartrate 25 mg 12/04/24 21:00 Metoprolol Tartrate 25 Mg Tablet PO BID WARREN Multivitamins 1 tab 12/04/24 09:00 12/04/24 08:01 Multivitamin 1 Tab PO 1 tab DAILY WARREN Administration Nystatin 1 applic 12/03/24 21:30 12/04/24 08:05 Nystatin 15 Gm Powder TP 1 applic BID WARREN Administration Ondansetron HCl 4 mg 12/03/24 13:36 Ondansetron Hcl/Pf 4 Mg/2 Ml Sdv IVP Q6H PRN Nausea / Vomiting Perflutren Lipid Microsphere 1 - 10 ml 12/03/24 15:39 12/03/24 15:43 Perflutren Lipid Microspheres 1.5ml/8.5ml Sodium Chloride 0.9% Syringe IVP 9 ml PRN PRN Administration IMAGE CLARITY Sodium Chloride 1 syr 12/03/24 15:39 0.9% Sodium Chloride 10 Ml Disp.Syrin IVF PRN PRN IMAGE CLARITY Sodium Chloride 1 syr 12/04/24 05:00 12/04/24 04:19 0.9% Sodium Chloride 10 Ml Disp.Syrin IVF 1 syr Q8HR WARREN Administration Plan Plan: 1. Acute systolic and diastolic heart failure exacerbation - Lasix, I&Os, daily weights, low sodium diet, 1800 mL fluid restriction. Patient has diuresed about 2L so far. Echo shows EF 20-25%. Would benefit from more thorough ischemic workup at higher level of care. 2. Cellulitis of right lower extremity - continue Cefazolin 3. Aortic stenosis - ECHO showing moderate/severe aortic stenosis. Could be contributing to fluid retention. Continue diuresis and will need outpatient follow up. 4. 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 Obesity - BMI of 41 6. Sepsis due to cellulitis - did not give fluid resuscitation due to heart fa ilure. Continue antibiotics. Blood cultures pending but negative so far. 7. DEWAYNE stage 1 - compared to previous labs 10 yrs ago, do not know recent baseline. Will monitor closely with diuresis. 8. Tachycardia - Pt had a few runs of tachycardia on telemetry. He has been asymptomatic and they are lasting only a minute or two. Unclear what underlying rhythm is during these episodes. Cont tele. Will increase metoprolol today. 9. Hypomagnesemia - Magnesium was 1.63 and with his irregular rhythm a mag rider was given, mag now at goal. DVT: lovenox Dispo: Patient will require higher level of care with cardiology services for further workup. Spoke with Dr. Marsh, hospitalist at [facility] who is accepting. They currently do not have a bed but he is on a waitlist. Review Statement Review Statement: I have personally discussed and reviewed the patient's visit/currently labs/imaging/decision making with Dr. Hawthorne, my supervising attending. Greater that 50 minutes spent with patient, 50% of the time spent with this patient was devoted to counseling and coordination of care.
[2024-12-04 15:00] LABS: ABG O2 HGB 95.6 % (95-100); ABG PO2 112.0 mmHg (85-100); BEecf 6.1 (-2.0-3.0); FI02 28.0 %; HCO3 32.5 (21-28); TCO2 34.5 (19-24)
[2024-12-04 15:02] LABS: ABG PCO2 66.0 mmHg (35-45); ABG PH 7.30 (7.35-7.45)
[2024-12-04] MEDS: LOPRESSOR PO SCH (20:09)
[2024-12-05 05:15] LABS: IMMATURE GRANULOCYTE # (AUTO) 0.0 (0.0-1.0); IMMATURE GRANULOCYTE % (AUTO) 0.3 % (0.0-5.0); RDW COEFFICIENT OF VARIATION 14.3 % (11.6-14.8)
[2024-12-05 05:27] LABS: CREATININE 1.49 mg/dL (0.60-1.10)
--- NOTE | 2024-12-05 13:11 | PCM.PROG ---
Date/Time Seen Date Seen by Provider: 12/05/24 Time Seen by Provider: 08:30 Provider Provider: NINOSKA DAMON [facility]-C, [facility] Chief Complaint Chief Complaint: CELLULITIS, BLE, CHF EXACERBATION Subjective Subjective: Patient has diuresed about 4L. Breathing is improved today. He states he's feeling better as well. He is very weak, 2 max assist to chair today. Awaiting bed a [facility]. Objective Appearance: Positive No Apparent Distress, Alert and Oriented x3 and Obese Chest/Lungs: Positive Symmetrical With Equal Breath Sounds and Clear to Auscultation Bilaterally; Negative Rales, Rhonci or Wheezes Heart: Positive RRR GI/: Positive Soft, Nontender, Bowel Sounds Normal and No Distention Neurological: Positive Sensation Intact, Cranial Nerves Intact, Alert and Oriented; Negative Muscle Strength 5/5 in Upper and Lower Extremities Bilaterally (+generalized weakness ) Additional Findings: 2-3+ pitting edema marco lower ext, erythema and warmth extending up right lateral leg which appears improved compared to yesterday. Vital Signs Vital Signs: Vital Signs: Last 24 Hours 12/04/24 13:54 12/04/24 14:00 12/04/24 17:53 Temperature 97.0 F L 97.2 F L Temperature Source Temporal Artery Scan Pulse Rate 80 77 Respiratory Rate 22 H 20 Blood Pressure 112/73 120/60 Blood Pressure Mean 86 80 Blood Pressure Location Left Arm Left Arm Blood Pressure Position Supine Supine O2 Sat by Pulse Oximetry 93 L 95 99 Oxygen Delivery Method Room Air Nasal Cannula Nasal Cannula Oxygen Flow Rate 2 2 2 Weight Telemetry Type Telemetry Monitoring Telemetry Heart Rate Telemetry SPO2 EKG WI Interval EKG QRS Interval Telemetry Strip Reading 12/04/24 19:00 12/04/24 20:00 12/04/24 20:00 Temperature Temperature Source Pulse Rate Respiratory Rate 18 Blood Pressure Blood Pressure Mean Blood Pressure Location Blood Pressure Position O2 Sat by Pulse Oximetry 95 Oxygen Delivery Method Nasal Cannula Nasal Cannula Oxygen Flow Rate 2 2 Weight Telemetry Type Remote Telemetry Telemetry Monitoring Continues Telemetry Heart Rate 75 Telemetry SPO2 92 L EKG WI Interval 0.17 EKG QRS Interval 0.09 Telemetry Strip Reading SR WITH PVC'S 12/04/24 21:26 12/05/24 01:00 12/05/24 02:00 Temperature 97.5 F L 97.2 F L Temperature Source Tympanic Temporal Artery Scan Pulse Rate 79 68 Respiratory Rate 18 Blood Pressure 105/80 102/62 Blood Pressure Mean 88 75 Blood Pressure Location Left Arm Right Arm Blood Pressure Position Supine Supine O2 Sat by Pulse Oximetry 96 98 Oxygen Delivery Method Nasal Cannula Nasal Cannula Oxygen Flow Rate 2 2 Weight Telemetry Type Remote Telemetry Telemetry Monitoring Continues Telemetry Heart Rate 74 Telemetry SPO2 97 EKG WI Interval 0.18 EKG QRS Interval 0.11 H Telemetry Strip Reading SR WITH BBB & PVC'S 12/05/24 05:10 12/05/24 05:23 12/05/24 05:30 Temperature 96.4 F L Temperature Source Tympanic Pulse Rate 73 Respiratory Rate Blood Pressure 123/86 Blood Pressure Mean 98 Blood Pressure Location Left Arm Blood Pressure Position Supine O2 Sat by Pulse Oximetry 95 97 Oxygen Delivery Method Nasal Cannula Nasal Cannula Oxygen Flow Rate 2 2 Weight 131 kg Telemetry Type Telemetry Monitoring Telemetry Heart Rate Telemetry SPO2 EKG WI Interval EKG QRS Interval Telemetry Strip Reading 12/05/24 07:00 12/05/24 08:00 12/05/24 10:00 Temperature 97.9 F Temperature Source Temporal Artery Scan Pulse Rate 58 L Respiratory Rate 22 H 20 Blood Pressure 118/58 L Blood Pressure Mean 78 Blood Pressure Location Right Arm Blood Pressure Position O2 Sat by Pulse Oximetry 98 Oxygen Delivery Method Nasal Cannula Nasal Cannula Oxygen Flow Rate 2 2 Weight Telemetry Type Remote Telemetry Telemetry Monitoring Continues Telemetry Heart Rate 70 Telemetry SPO2 97 EKG WI Interval 0.17 EKG QRS Interval 0.13 H Telemetry Strip Reading S. arrhythmia with BBB and PVCs and PACs 12/05/24 10:00 Temperature Temperature Source Pulse Rate Respiratory Rate Blood Pressure Blood Pressure Mean Blood Pressure Location Blood Pressure Position O2 Sat by Pulse Oximetry 97 Oxygen Delivery Method Nasal Cannula Oxygen Flow Rate 2 Weight Telemetry Type Telemetry Monitoring Telemetry Heart Rate Telemetry SPO2 EKG WI Interval EKG QRS Interval Telemetry Strip Reading Lab Results Lab Results: Lab Results: Last 24 Hours 12/05/24 12/04/24 05:04 14:56 WBC 11.82 H RBC 4.79 Hgb 14.7 Hct 47.6 MCV 99.4 H MCH 30.7 MCHC 30.9 L RDW Coeff of Brigid 14.3 Plt Count 218 Immature Gran % (Auto) 0.3 Neut % (Auto) 79.0 H Lymph % (Auto) 8.4 L [place] % (Auto) 10.2 H Eos % (Auto) 1.8 Baso % (Auto) 0.3 Neut # (Auto) 9.3 H Lymph # (Auto) 1.0 [place] # (Auto) 1.2 Eos # (Auto) 0.2 Baso # (Auto) 0.0 Immature Gran # (Auto) 0.0 Puncture Site Rt rad Base Excess 6.1 H O2 Saturation 97.9 ABG pH 7.30 L ABG pCO2 66.0 H ABG pO2 112.0 H ABG HCO3 32.5 H ABG Total CO2 34.5 H [place] Test Pos Hemoglobin 0.9 Oxyhemoglobin 95.6 Carboxyhemoglobin 1.8 H Total Hemoglobin 15.2 O2 Delivery Device Cannula Oxygen Liter Flow 2.00 FiO2 % 28.0 Sodium 135.3 Potassium 3.91 Chloride 103.5 Carbon Dioxide 30.3 H Anion Gap 5.41 BUN 33.6 H Creatinine 1.49 H Estimated GFR (MDRD) 46.00 BUN/Creatinine Ratio 22.55 Glucose 113.1 H Calcium 8.49 Magnesium 1.84 Total Bilirubin 0.52 AST 35.0 ALT 13.0 Alkaline Phosphatase 213.6 H Total Protein 6.11 L Albumin 2.98 L Globulin 3.13 Albumin/Globulin Ratio 0.95 Additional Comments Additional Comments: I have independently reviewed and interpreted the labs/EKGs/imaging ordered during this hospital stay. I have reviewed outside records that are available in our EMR that pertain to medical stay including imaging/notes/labs from previous visits. Active Medications Active Medications: Medications Generic Name Dose Route Start Last Admin Trade Name Kris PRN Reason Stop Dose Admin Acetaminophen 650 mg 12/03/24 13:36 Acetaminophen 325 Mg Tablet PO Q4H PRN Mild Pain Aspirin 325 mg 12/04/24 07:30 12/05/24 08:16 Aspirin 325 Mg Tablet. PO 325 mg DAILYWM2 WARREN Administration Enoxaparin Sodium 130 mg 12/04/24 09:00 12/05/24 08:17 Enoxaparin Sodium 150 Mg/Ml Syr SUBCUT 130 mg Q12HR WARREN Administration Folic Acid 0.5 mg 12/04/24 09:00 12/05/24 08:17 Folic Acid 1 Mg Tablet PO 0.5 mg DAILY WARREN Administration Furosemide 40 mg 12/03/24 21:00 12/05/24 04:56 Furosemide Inj 40 Mg/4 Ml Vial IVP 40 mg Q8HR WARREN Administration Cefazolin Sodium/Dextrose 2 gm in 50 mls @ 75 mls/hr 12/03/24 14:30 12/05/24 04:56 Ancef 2 Gm/50 Ml Premix IV 12/06/24 14:29 75 mls/hr Q8HR WARREN Administration Metoprolol Tartrate 5 mg 12/04/24 05:59 Metoprolol Tartrate 5 Mg/5 Ml Vial IVP ONCE PRN Ventricular Arrhythmia Metoprolol Tartrate 25 mg 12/04/24 21:00 12/05/24 08:16 Metoprolol Tartrate 25 Mg Tablet PO 25 mg BID WARREN Administration Multivitamins 1 tab 12/04/24 09:00 12/05/24 08:17 Multivitamin 1 Tab PO 1 tab DAILY WARREN Administration Nystatin 1 applic 12/03/24 21:30 12/05/24 08:21 Nystatin 15 Gm Powder TP 1 applic BID WARREN Administration Ondansetron HCl 4 mg 12/03/24 13:36 Ondansetron Hcl/Pf 4 Mg/2 Ml Sdv IVP Q6H PRN Nausea / Vomiting Perflutren Lipid Microsphere 1 - 10 ml 12/03/24 15:39 12/03/24 15:43 Perflutren Lipid Microspheres 1.5ml/8.5ml Sodium Chloride 0.9% Syringe IVP 9 ml PRN PRN Administration IMAGE CLARITY Sodium Chloride 1 syr 12/03/24 15:39 0.9% Sodium Chloride 10 Ml Disp.Syrin IVF PRN PRN IMAGE CLARITY Sodium Chloride 1 syr 12/04/24 05:00 12/05/24 04:57 0.9% Sodium Chloride 10 Ml Disp.Syrin IVF 1 syr Q8HR WARREN Administration Plan Plan: 1. Acute systolic and diastolic heart failure exacerbation - Lasix, I&Os, daily weights, low sodium diet, 1800 mL fluid restriction. Patient has diuresed about 4L so far. Echo shows EF 20-25%. Would benefit from more thorough ischemic workup at higher level of care. Metoprolol ordered due to HF and episodes of tachycardia and frequent pvcs. Will add spironolactone next if pt BP is able to tolerate. 2. Cellulitis of right lower extremity - improved, continue Cefazolin, MRSA swab negative 3. Aortic stenosis - ECHO showing moderate/severe aortic stenosis. Could be contributing to fluid retention. Continue diuresis and will need outpatient follow up. Avoid nitro. 4. 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 Obesity - BMI of 41 6. Sepsis due to cellulitis - Ruled out, bc negative. Did not give fluid resuscitation due to heart failure. Continue antibiotics. 7. DEWAYNE stage 1 - compared to previous labs 10 yrs ago, do not know recent baseline. Will monitor closely with diuresis. 8. Tachycardia - Pt has had short runs of tachycardia on telemetry. He has been asymptomatic and they are lasting only a minute or two. Unclear what underlying rhythm is during these episodes. Cont tele. Metoprolol 25 mg bid ordered. 9. Hypomagnesemia - 1.8 today, will give mag rider with goal of 2. DVT: lovenox Dispo: Patient will require higher level of care with cardiology services for further workup. Spoke with Dr. Marsh, hospitalist at [facility] who is accepting. They currently do not have a bed but he is on a waitlist. Review Statement Review Statement: I have personally discussed and reviewed the patient's visit/currently labs/imaging/decision making with Dr. Hawthorne, my supervising attending. Greater that 50 minutes spent with patient, 50% of the time spent with this patient was devoted to counseling and coordination of care.
[2024-12-05] MEDS: MAGNESIUM SULF 2 G/50 ML BAG 2 GM/50 ML PIGGYBACK IV ONE (14:31)
[2024-12-05] MEDS: ALDACTONE PO ONE (16:06)
[2024-12-05] MEDS: LOPRESSOR IVP PRN (22:13)
[2024-12-06 05:09] VITALS: RESP 20
[2024-12-06 05:28] LABS: IMMATURE GRANULOCYTE # (AUTO) 0.0 (0.0-1.0); IMMATURE GRANULOCYTE % (AUTO) 0.3 % (0.0-5.0); RDW COEFFICIENT OF VARIATION 14.0 % (11.6-14.8)
[2024-12-06 05:40] LABS: CREATININE 1.46 mg/dL (0.60-1.10)
[2024-12-06] MEDS: ALDACTONE PO SCH (08:35)
[2024-12-06] MEDS ORDERED: ALDACTONE PO SCH (09:00)
--- NOTE | 2024-12-06 12:34 | DCSUM ---
Admission Date Admission Date: 12/03/24 Discharge Date Discharge Date: 12/06/24 Admission Diagnosis Admission Diagnosis: 1. Acute heart failure exacerbation 2. Cellulitis of right lower extremity Discharge Diagnosis Discharge Diagnosis: 1. Acute systolic and diastolic heart failure exacerbation 2. Cellulitis of right lower extremity - improved 3. Aortic stenosis 4. 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 Sepsis due to cellulitis - Ruled out 7. CKD 8. Tachycardia 9. Hypomagnesemia - improved 10. Obesity Hospital Provider Hospital Provider: NINOSKA DAMON PA-C, [facility] Summary of History and Physical Summary of History and Physical: Patient is a 79 year old male with no known PMH due to lack of health care utilization. Patient arrived to the ED today due to shortness of breath and weakness. He has been experiencing this for 4 months but today he walked 100 feet to his garage, and was so short of breath and weak that he sat down and could not get up. He called his friend to come help him and brought him to the ER. Chest xray and CTA was obtained in the ER, which showed bilateral pleural [place]. [place] [address]. D-dimer elevated at 1451.98, Bilat LE d oppler US showed no DVT. Patient has bilateral 2-3+ lower extremity edema with erythema of the right lower extremity extending from the anterior and lateral portion of the lower leg up to the thigh, suspicious for cellulitis. WBC count and lactic acid is elevated. He states he has had a dry cough for the past few months. He denies any chest pain, nausea, headache, dizziness, or complaints. Has hx of cellulitis many years ago. Admitted to med surg. Hospital Course Subjective: Patient was treated with cefazolin for cellulitis. It is slowly improving each day. WBC improved from 20 to 11.5. Regarding his CHF, he has been diuresed with lasix 40 q8hrs, has diuresed 10-11L so far since admission. Renal tolerating well so far. Down about 12.5 lbs. Breathing has improved. Has been on 2L O2. Started on metoprolol tartrate 12.5 bid, increased to 25 mg bid due to paroxysmal runs of tachycardia on tele (appears a flutter at times). EKG showing LBBB, unknown acuity. Started spironolactone 12.5 mg on 12/05. So far BP tolerating well but on low end of normal. His echo results were poor. EF is 20- 25%, mod-severe , grade II diastolic dysfunction. Also noted a possible layered left ventricular apical thrombus. Recommendation to consider cardiac MRI w/ contrast, which is not able to be performed at this facility. Patient was started on lovenox 1 mg/kg q12hrs following those results. Unclear how acute these findings are, given no recent medical treatment and 4 month history of worsening symptoms. Nonetheless the patient would benefit from a higher level of care with cardiology and possibly EP involvement. He is agreeable to this. These findings have been explained to him as well. Initially accepted at [facility] but no bed available for 2 days now. Patient has been accepted by Dr. Al, hospitalist at [facility] in [place], appreciate his help. Patient will be transferred in stable condition. Appearance: Pleasant, No Apparent Distress and Alert HEENT: MMM and Supple CVS: Other (rrr) Abdomen: Soft, Non-Tender and No Distention Respiratory: No Accessory Muscle Use Additional Findings: 2+ PITTING EDEMA KORTNEY LOWER EXT, EVIDENCE OF VENOUS STASIS DERMATITIS, ERYTHEMA OF RIGHT LATERAL LEG/THIGH IS IMPROVING Vital Signs: Most Recent Vital Signs Temperature 97.3 F L 12/06/24 10:00 Temperature Source Temporal Artery Scan 12/06/24 10:00 Temperature Source Infrared 12/03/24 09:43 Pulse Rate 102 H 12/06/24 10:00 Respiratory Rate 20 12/06/24 10:00 Blood Pressure 108/87 12/06/24 10:00 Blood Pressure Mean 94 12/06/24 10:00 Blood Pressure Left Arm 158/96 12/03/24 13:30 Blood Pressure Location Right Arm 12/06/24 10:00 Blood Pressure Position Supine 12/06/24 10:00 O2 Sat by Pulse Oximetry 96 12/06/24 10:00 Oxygen Delivery Method Nasal Cannula 12/06/24 10:00 Oxygen Flow Rate 2 12/06/24 10:00 Height 5 ft 10.5 in 12/03/24 13:30 Weight 128.1 kg 12/06/24 05:04 Telemetry Type Remote Telemetry 12/06/24 07:00 Telemetry Monitoring Continues 12/06/24 07:00 Irregular Telemetry Rate (Approximate) 60-70 BPM 12/06/24 07:00 Telemetry Heart Rate 62 12/06/24 07:00 Telemetry SPO2 62 L 12/06/24 01:00 EKG AZ Interval 0.20 12/06/24 07:00 EKG QRS Interval 0.12 H 12/06/24 07:00 Telemetry Strip Reading SRw BBB 12/06/24 07:00 Imaging: EXAM: CHEST RADIOGRAPH TECHNIQUE: Single frontal chest radiograph. HISTORY: Shortness of breath. COMPARISON: 08/04/2015 FINDINGS: The patient is mildly rotated to the left. The patient's chin partially obscures the left apex. Hypoventilation. EKG leads project over the chest. No pulmonary infiltrate is identified. Equivocal trace bilateral pleural effusions. No visible pneumothorax. Stable cardiomegaly, with interval development of increased peribronchovascular markings bilaterally. No acute displaced rib fractures are identified. IMPRESSION: 1. Stable cardiomegaly with equivocal trace bilateral pleural effusions, and suggestions of either interstitial edema or bronchitis. EXAM: CHEST CTA WITH CONTRAST (PULMONARY ARTERY) HISTORY: Chest pain and shortness of breath. TECHNIQUE: CTA acquisition of the chest from the thoracic inlet to the upper abdomen following IV contrast administration timed to filling of the pulmonary artery. 3D/MIP/VR images were utilized. CT Dose Reduction Techniques Employed: Yes. COMPARISON: None. FINDINGS: Pulmonary Embolism: - Diagnostic quality: Adequate. - Central (Main/Lobar/Interlobar): No embolus. - Peripheral (Segmental/Subsegmental): No embolus. Lung Parenchyma and Airways: There are moderate bilateral pleural effusions. There is pulmonary vascular congestion. No suspicious pulmonary nodule. No pleural effusion or thickening. No pneumothorax. Thoracic Inlet, Mediastinum, and [place]: No mass. There are calcified mediastinal lymph nodes. Heart, Vessels, and Pericardium: No aortic anuerysm. The heart chambers are enlarged. There is no pericardial effusion or thickening. There are multi vessel coronary vascular calcifications. Bones and Soft Tissues: There is no fracture or lytic lesion. Chest wall soft tissues are unremarkable. Upper Abdomen: There are calcified granulomas in the liver and spleen. IMPRESSION: 1. No evidence of pulmonary artery embolism. 2. Vascular congestion with moderate bilateral pleural effusions. All CT scans are performed using dose optimization techniques as appropriate to the performed exam and include at least one of the following: Automated exposure control, adjustment of the mA and/or kV according to size, and the use of iterative reconstruction technique. EXAM: BILATERAL LOWER EXTREMITY DEEP VENOUS ULTRASOUND WITH DOPPLER IMAGING HISTORY: Lower extremity edema. TECHNIQUE: Bryant-scale ultrasound with compression maneuvers and color and spectral Doppler ultrasound at rest and with augmentation of the veins was performed. Images were obtained and stored in a permanent archive. COMPARISON: Right lower extremity venous Doppler ultrasound 08/10/2015 FINDINGS: RIGHT LOWER EXTREMITY: Common Femoral Vein: Normal compression. Normal flow on color Doppler images. Normal response to augmentation. Deep Femoral Vein: Normal compression. Normal flow on color Doppler images. Normal response to augmentation. Femoral Vein: Normal compression. Normal flow on color Doppler images. Normal response to augmentation. Popliteal Vein: Normal compression. Normal flow on color Doppler images. Normal response to augmentation. Peroneal Vein: Normal compression. Normal flow on color Doppler images. Posterior Tibial Vein: Normal compression. Normal flow on color Doppler images. Anterior Tibial Vein: Normal compression. Normal flow on color Doppler images. Great Saphenous Vein (Superficial): Normal compression. Normal flow on color Doppler images Other: No reflux. LEFT LOWER EXTREMITY: Common Femoral Vein: Normal compression. Normal flow on color Doppler images. Normal response to augmentation. Deep Femoral Vein: Normal compression. Normal flow on color Doppler images. Normal response to augmentation. Femoral Vein: Normal compression. Normal flow on color Doppler images. Normal response to augmentation. Popliteal Vein: Normal compression. Normal flow on color Doppler images. Normal response to augmentation. Peroneal Vein: Suboptimal visualization due to body habitus and subcutaneous edema. Posterior Tibial Vein: Normal compression. Normal flow on color Doppler images. Anterior Tibial Vein: Normal compression. Normal flow on color Doppler images. Great Saphenous Vein (Superficial): Normal compression. Normal flow on color Doppler images. Other: No reflux. Subcutaneous edema. IMPRESSION: 1. No deep venous thrombosis (DVT) in the visualized right or left lower extremity. Suboptimal evaluation of left peroneal vein. 2. No superficial venous thrombosis (SVT) in the right or left lower extremity. ECHO - PLEASE SEE SCANNED PDF REPORT Lab Results Last 24 Hours: 12/06/24 05:12 WBC 11.57 H RBC 4.66 L Hgb 14.3 Hct 45.6 MCV 97.9 H MCH 30.7 MCHC 31.4 L RDW Coeff of Brigid 14.0 Plt Count 240 Immature Gran % (Auto) 0.3 Neut % (Auto) 71.5 Lymph % (Auto) 11.1 [place] % (Auto) 12.7 H Eos % (Auto) 3.8 Baso % (Auto) 0.6 Neut # (Auto) 8.3 H Lymph # (Auto) 1.3 [place] # (Auto) 1.5 Eos # (Auto) 0.4 Baso # (Auto) 0.1 Immature Gran # (Auto) 0.0 Sodium 135.6 Potassium 3.53 Chloride 100.4 Carbon Dioxide 35.9 H Anion Gap 2.83 BUN 37.9 H Creatinine 1.46 H Estimated GFR (MDRD) 47.00 BUN/Creatinine Ratio 25.95 Glucose 102.8 Calcium 8.23 L Magnesium 1.99 Total Bilirubin 0.44 AST 36.3 ALT 7.2 Alkaline Phosphatase 211.5 H Total Protein 6.07 L Albumin 2.91 L Globulin 3.16 Albumin/Globulin Ratio 0.92 Discharge Instructions Discharge Planning: Discharge Planning > 80 minutes If patient is discharged with left ventricular systolic dysfunction: Discharged with a beta sarkis? y Discharged with an iván/arb? not yet, in middle of heart failure work up/diuresis Discussed with Dr. Chasity Hawthorne. Discharge Medications: Home Medications Acetaminophen (Acetaminophen 325 Mg Tablet) 650 mg PO Q4H PRN PRN Reason: Mild Pain Aspirin (Aspirin 325 Mg Tablet.) 325 mg PO DAILYWM2 [facility] Last Admin: 12/06/24 08:33 Dose: 325 mg Enoxaparin Sodium (Enoxaparin Sodium 150 Mg/Ml Syr) 130 mg SUBCUT Q12HR [facility] Last Admin: 12/06/24 08:31 Dose: 130 mg Folic Acid (Folic Acid 1 Mg Tablet) 0.5 mg PO DAILY [facility] Last Admin: 12/06/24 08:32 Dose: 0.5 mg Furosemide (Furosemide Inj 40 Mg/4 Ml Vial) 40 mg IVP Q8HR [facility] Last Admin: 12/06/24 12:31 Dose: 40 mg Cefazolin Sodium/Dextrose (Ancef 2 Gm/50 Ml Premix) 2 gm in 50 mls @ 75 mls/hr IV Q8HR [facility] Last Admin: 12/06/24 12:31 Dose: 75 mls/hr Metoprolol Tartrate (Metoprolol Tartrate 5 Mg/5 Ml Vial) 5 mg IVP ONCE PRN PRN Reason: Ventricular Arrhythmia Last Admin: 12/05/24 22:13 Dose: 5 mg Metoprolol Tartrate (Metoprolol Tartrate 25 Mg Tablet) 25 mg PO BID [facility] Last Admin: 12/06/24 08:33 Dose: 25 mg Multivitamins (Multivitamin 1 Tab) 1 tab PO DAILY [facility] Last Admin: 12/06/24 08:34 Dose: 1 tab Nystatin (Nystatin 15 Gm Powder) 1 applic TP BID [facility] Last Admin: 12/06/24 09:51 Dose: 1 applic Ondansetron HCl (Ondansetron Hcl/Pf 4 Mg/2 Ml Sdv) 4 mg IVP Q6H PRN PRN Reason: Nausea / Vomiting Perflutren Lipid Microsphere (Perflutren Lipid Microspheres 1.5ml/8.5ml Sodium Chloride 0.9% Syringe) 1 - 10 ml IVP PRN PRN PRN Reason: IMAGE CLARITY Last Admin: 12/03/24 15:43 Dose: 9 ml Potassium Chloride (Potassium Chloride 20 Meq Tab) 40 meq PO ONCE ONE Stop: 12/06/24 12:26 Sodium Chloride (0.9% Sodium Chloride 10 Ml Disp.Syrin) 1 syr IVF PRN PRN PRN Reason: IMAGE CLARITY Sodium Chloride (0.9% Sodium Chloride 10 Ml Disp.Syrin) 1 syr IVF Q8HR [facility] Last Admin: 12/06/24 04:56 Dose: 1 syr Spironolactone (Spironolactone 25 Mg Tablet) 12.5 mg PO DAILY [facility] Last Admin: 12/06/24 08:35 Dose: 12.5 mg Discharge Plan Discharge Discharge Orders: Discharge Patient (ONCE); Ordered 12/06/24 Ordered By: NINOSKA DAMON Activity Restrictions/Additional Instructions: DISCHARGE TO [facility] DR. AL, HOSPITALIST, ACCEPTING DX: SYSTOLIC HEART FAILURE EXACERBATION, POSSIBLE APICAL THROMBUS, CELLULITIS Patient Disposition: TSF SHORT-TRM HOSP Did you review [place] [employer]PA[employer] PERSON for ALL controlled substances?: Not Applicable Discussed opioids are addictive and Narcan is available by prescription or from pharmacy.: No Condition: Stable
[2024-12-06] MEDS: K-DUR PO ONE (13:20)
[2024-12-06 15:12] VITALS: BP 107/85; PULSE 108; TEMP 97.8
== END 2024-12-06 15:25 | disposition short-term general hospital (02) | DRG 292 ==
LOC: ED 09:39 → MEDSURG B 12:49
PROVIDERS: ADMIT Hospitalist; ATTEND Physician Assistant